=== PATIENT | female | born 1945 | race Caucasian/White ===

== ENCOUNTER 2023-01-13 15:47 | Emergency (ER) | payer OTHER ==
--- OUTSIDE RECORDS SUMMARY | 2023-01-13 15:51 | XMS REPORT | Continuity of Care Document ---
:1945 Author Organization [facility] t Address [address] [place] [address] Care Team Providers Name Role Phone Fredis Rodriguez MD Primary Care Physician Mckayla Holman MD Attending Clinician MIREYA BLACKMAN Attending Clinician Unavailable Nathalia Miguel MA Attending Clinician Unavailable Zach Monteiro MD Attending Clinician Celina De Leon Attending Clinician DEENA PRECIADO Attending Clinician Unavailable ITZEL ROSALES Attending Clinician Unavailable ARASH STARK Attending Clinician Unavailable MD ARASH STARK Attending Clinician Unavailable ARASH STARK Admitting Clinician Unavailable MD ARASH STARK Admitting Clinician Unavailable MCKAYLA HOLMAN Admitting Clinician Unavailable Payers Payer Name Policy Type Policy Number Effective Date Expiration Date S ource PPO/POS - [employer] [id number] 2021 00:00:00 Problems Condition Condition Condition Status Onset Resolution Last Treating Co mments Source Name Details Category Date Date Treatment Clinician Date Abnormal Abnormal Disease Active 2019-09 Metho di stress stress 09-22 st test test 00:00: Hospita 00 l 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 00:00: Ho spita ty, right ty, right 00 l Localized Localized Disease Active [facility] osteoarthr osteoarthr 04-29 st itis of itis of 00:00: Hospita right knee right knee 00 l Allergies, Adverse Reactions, Alerts Allergy Allergy Status Severity Reaction(s) Onset Inactive Treating Comm ents Source Name Type Date Date Clinician Egg Propensi Active Swelling When she Meth santiago ty to 09-[address] adverse 00:00: many it Hospita reaction 00 causes l s to Lip drug swelling Penicill Propensi Active Itching Metho di ins ty to 09-22 st adverse 00:00: Hospita reaction 00 l s to drug Fluconaz Propensi Active Diarrhea Meth santiago ole ty to 04-29 st adverse 00:00: Hospita reaction 00 l s to drug Predniso Propensi Active Other (See Anger and Methodi ne ty to Comments) [address] adverse 00:00: Terrible Hospita reaction 00 insomnia. l s to drug Codeine Propensi Active Other (See 2016-09 "wild" as Methodi ty to Comments) 0-[address] adverse 00:00: girl Hospita reaction 00 l s to drug Erythrom Propensi Active Itching 2016-09 Metho di ycin ty to 0-24 st adverse 00:00: Hospita reaction 00 l s to drug Sulfa Propensi Active Rash 2016-09 Methodi (Sulfona ty to 0-24 st mide adverse 00:00: Hospita Antibiot reaction 00 l ics) s to drug Family History Family Member Diagnosis Comments Start Date Stop Date Source Natural father Emphysema [facility]ism [facility] Natural father Hypertension Methodis t [facility] Natural mother Hypertension Method t [facility] Social History Social Habit Start Date Stop Date Quantity Comments Source History of tobacco Cigarette Smoker [facility]ism use [facility] Gender identity [facility] Sexual orientation [facility] History of Social [address] function 00:00:00 00:00:00 Hospital Alcohol intake 2022-03-07 2022-03-07 Ex-drinker [facility] 00:00:00 00:00:00 (finding) Hospital Tobacco use and 2019-09-22 2019-09-22 Smokeless [facility] exposure 00:00:00 00:00:00 tobacco non-user Hospital Cigarettes smoked 2019-09-22 2019-09-[address] current (pack per 00:00:00 00:00:00 Hospita l day) - Reported Cigarette 2019-09-22 2019-09-22 [facility] pack-years 00:00:00 00:00:00 Hospital Sex Ass[birth year] At [birth year] [facility] 00:00:00 00:00:00 Hospital Smoking Status Start Date Stop Date Source Ex-smoker 2019-09-22 00:00:00 2019-09[facility] Ordered Filled Start Stop Current Ordering Indication Dosage Frequency Signature Comments Components Source Medication Medication Date Date Medication? Clinician (SIG) Name Name krill oil Yes 1{capsu QD Take 1 Met hodi 500 mg 6-21 le} capsule by st capsule 14:05: mouth Hospita 18 daily. l cholecalcif 2021-0 Yes 2{tbl} QD Take 2 Me thodi nilam, 6-[address] vitamin D3, 14:05: mouth Hospi ta 250 mcg 18 daily. 2 l (10,000 tablets unit) daily tablet calcium 2021-0 Yes 1{tbl} QD Take 1 Method i citrate-vit 6-[address] ritter D3 14:05: mouth Hospita (CITRACAL+D 18 daily. l ) 315-200 mg-unit per tablet clobetasol 2021-0 Yes Apply Method i (TEMOVATE) 6-[address] 0.05 % 14:05: as needed. Hospi ta external 18 l solution ibuprofen 2021-0 Yes 200mg Q6H Take 200 Met hodi (ADVIL) 200 6-[address] MG tablet 14:05: mouth Hospita 18 every 6 l (six) hours as needed for mild pain. sour gates 2021-0 Yes Take by Met hodi extract 6-[address] (TART 14:05: Hospita GATES 18 l EXTRACT ORAL) hydrocortis 2021-0 Yes Apply Metho di one 0.5 % 6-[address] cream 14:05: as needed. Hospit a 18 l isosorbide 2021-0 Yes 20mg Q.5D Take 20 mg M ethodi mononitrate 6-[address] (ISMO,MONOK 14:05: (two) Hospi ta ET) 20 MG 18 times a l tablet day. clopidogrel 2022-0 Yes 75mg QD Take 75 mg Methodi (PLAVIX) 75 6-[address] mg tablet 14:05: daily. Hospit a 18 l simvastatin 2022-0 Yes 20mg Take 20 mg Methodi (ZOCOR) 20 6-[address] MG tablet 14:05: Hospita 18 l levothyroxi 2022-0 Yes 112ug QD Take 112 M ethodi ne 6-[address] (SYNTHROID, 14:05: mouth Hospi ta LEVOXYL) 18 every l 112 mcg morning. tablet multivitami 2022-0 Yes 1{tbl} QD Take 1 Me thodi n 6-[address] (THERAGRAN) 14:05: mouth Hospi ta tablet 18 daily. l krill oil 2021-0 Yes 1{capsu QD Take 1 Met hodi 500 mg 6-21 le} capsule by st capsule 14:05: mouth Hospita 18 daily. l cholecalcif 2022-0 Yes 2{tbl} QD Take 2 Me thodi nilam, 6-[address] vitamin D3, 14:05: mouth Hospi ta 250 mcg 18 daily. 2 l (10,000 tablets unit) daily tablet calcium 2021-0 Yes 1{tbl} QD Take 1 Method i citrate-vit 6-21 tablet by ritter D3 14:05: mouth Hospita (CITRACAL+D 18 daily. l ) 315-200 mg-unit per tablet clobetasol 2021-0 Yes Apply Method i (TEMOVATE) 6-[address] 0.05 % 14:05: as needed. Hospi ta external 18 l solution ibuprofen 2021-0 Yes 200mg Q6H Take 200 Met hodi (ADVIL) 200 6-[address] MG tablet 14:05: mouth Hospita 18 every 6 l (six) hours as needed for mild pain. sour gates 2021-0 Yes Take by Met hodi extract 6-[address] (TART 14:05: Hospita GATES 18 l EXTRACT ORAL) hydrocortis 2021-0 Yes Apply Metho di one 0.5 % 6-[address] cream 14:05: as needed. Hospit a 18 l isosorbide 2021-0 Yes 20mg Q.5D Take 20 mg M ethodi mononitrate 6-[address] (ISMO,MONOK 14:05: (two) Hospi ta ET) 20 MG 18 times a l tablet day. clopidogrel 2-0 Yes 75mg QD Take 75 mg Methodi (PLAVIX) 75 6-[address] mg tablet 14:05: daily. Hospit a 18 l simvastatin 2022-0 Yes 20mg Take 20 mg Method[facility] (ZOCOR) 20 6-[address] MG tablet 14:05: Hospita 18 l levothyroxi 2022-0 Yes 112ug QD Take 112 M ethodi ne 6-[address] (SYNTHROID, 14:05: mouth Hospi ta LEVOXYL) 18 every l 112 mcg morning. tablet multivitami 2021-0 Yes 1{tbl} QD Take 1 Me thodi n 6-[address] (THERAGRAN) 14:05: mouth Hospi ta tablet 18 daily. l krill oil 2021-0 Yes 1{capsu QD Take 1 Met hodi 500 mg 6-21 le} capsule by st capsule 14:05: mouth Hospita 18 daily. l cholecalcif 202-0 Yes 2{tbl} QD Take 2 Me thodi nilam, 6-[address] vitamin D3, 14:05: mouth Hospi ta 250 mcg 18 daily. 2 l (10,000 tablets unit) daily tablet calcium 2021-0 Yes 1{tbl} QD Take 1 Method i citrate-vit 6-[address] ritter D3 14:05: mouth Hospita (CITRACAL+D 18 daily. l ) 315-200 mg-unit per tablet clobetasol 2021-0 Yes Apply Method i (TEMOVATE) 6-[address] 0.05 % 14:05: as needed. Hospi ta external 18 l solution ibuprofen 2021-0 Yes 200mg Q6H Take 200 Met hodi (ADVIL) 200 6-[address] MG tablet 14:05: mouth Hospita 18 every 6 l (six) hours as needed for mild pain. sour gates 2021-0 Yes Take by Met hodi extract 6-[address] (TART 14:05: Hospita GATES 18 l EXTRACT ORAL) hydrocortis 2021-0 Yes Apply Metho di one 0.5 % 6-[address] cream 14:05: as needed. Hospit a 18 l isosorbide 2022-0 Yes 20mg Q.5D Take 20 mg M ethodi mononitrate 6-[address] (ISMO,MONOK 14:05: (two) Hospi ta ET) 20 MG 18 times a l tablet day. clopidogrel 2022-0 Yes 75mg QD Take 75 mg Methodi (PLAVIX) 75 6-[address] mg tablet 14:05: daily. Hospit a 18 l simvastatin 2022-0 Yes 20mg Take 20 mg Method[facility] (ZOCOR) 20 6-[address] MG tablet 14:05: Hospita 18 l levothyroxi 2022-0 Yes 112ug QD Take 112 M ethodi ne 6-[address] (SYNTHROID, 14:05: mouth Hospi ta LEVOXYL) 18 every l 112 mcg morning. tablet multivitami 2022-0 Yes 1{tbl} QD Take 1 Me thodi n 6-[address] (THERAGRAN) 14:05: mouth Hospi ta tablet 18 daily. l krill oil 2022-0 Yes 1{capsu QD Take 1 Met hodi 500 mg 6-21 le} capsule by st capsule 14:05: mouth Hospita 18 daily. l isosorbide 2022-0 Yes 20mg Q.5D Take 20 mg M ethodi mononitrate 6-[address] (ISMO,MONOK 14:05: (two) Hospi ta ET) 20 MG 18 times a l tablet day. clopidogrel 2022-0 Yes 75mg QD Take 75 mg Methodi (PLAVIX) 75 6-[address] mg tablet 14:05: daily. Hospit a 18 l simvastatin 2022-0 Yes 20mg Take 20 mg Method[facility] (ZOCOR) 20 6-[address] MG tablet 14:05: Hospita 18 l levothyroxi 2022-0 Yes 112ug QD Take 112 M ethodi ne 6-[address] (SYNTHROID, 14:05: mouth Hospi ta LEVOXYL) 18 every l 112 mcg morning. tablet multivitami 2022-0 Yes 1{tbl} QD Take 1 Me thodi n 6-[address] (THERAGRAN) 14:05: mouth Hospi ta tablet 18 daily. l krill oil 2022-0 Yes 1{capsu QD Take 1 Met hodi 500 mg 6-21 le} capsule by st capsule 14:05: mouth Hospita 18 daily. l cholecalcif 2022-0 Yes 2{tbl} QD Take 2 Me thodi nilam, 6-[address] vitamin D3, 14:05: mouth Hospi ta 250 mcg 18 daily. 2 l (10,000 tablets unit) daily tablet calcium 2022-0 Yes 1{tbl} QD Take 1 Method i citrate-vit 6-[address] ritter D3 14:05: mouth Hospita (CITRACAL+D 18 daily. l ) 315-200 mg-unit per tablet clobetasol 2022-0 Yes Apply Method i (TEMOVATE) 6-[address] 0.05 % 14:05: as needed. Hospi ta external 18 l solution ibuprofen 2-0 Yes 200mg Q6H Take 200 Met hodi (ADVIL) 200 6-[address] MG tablet 14:05: mouth Hospita 18 every 6 l (six) hours as needed for mild pain. sour gatse 2021-0 Yes Take by Met hodi extract 6-[address] (TART 14:05: Hospita GATES 18 l EXTRACT ORAL) hydrocortis 2021-0 Yes Apply Metho di one 0.5 % 6-[address] cream 14:05: as needed. Hospit a 18 l cholecalcif 2022-0 Yes 2{tbl} QD Take 2 Me thodi nilam, 6-[address] vitamin D3, 14:05: mouth Hospi ta 250 mcg 18 daily. 2 l (10,000 tablets unit) daily tablet calcium 2-0 Yes 1{tbl} QD Take 1 Method i citrate-vit 6-[address] ritter D3 14:05: mouth Hospita (CITRACAL+D 18 daily. l ) 315-200 mg-unit per tablet clobetasol 2022-0 Yes Apply Method i (TEMOVATE) 6-[address] 0.05 % 14:05: as needed. Hospi ta external 18 l solution ibuprofen 2022-0 Yes 200mg Q6H Take 200 Met hodi (ADVIL) 200 6-[address] MG tablet 14:05: mouth Hospita 18 every 6 l (six) hours as needed for mild pain. sour gates 0 Yes Take by Met hodi extract 6-[address] (TART 14:05: Hospita GATES 18 l EXTRACT ORAL) hydrocortis 2021-0 Yes Apply Metho di one 0.5 % 03-[address] cream 14:05: as needed. Hospit a 18 l isosorbide 2021-0 Yes 20mg Q.5D Take 20 mg M ethodi mononitrate -[address] (ISMO,MONOK 14:05: (two) Hospi ta ET) 20 MG 18 times a l tablet day. clopidogrel 0 Yes 75mg QD Take 75 mg [facility] (PLAVIX) 75 - by mouth st mg tablet 14:05: daily. Hospit a 18 l simvastatin 2021-0 Yes 20mg Take 20 mg [facility] (ZOCOR) 20 - by mouth. st MG tablet 14:05: Hospita 18 l levothyroxi 2021-0 Yes 112ug QD Take 112 M ethodi ne 6-[address] (SYNTHROID, 14:05: mouth Hospi ta LEVOXYL) 18 every l 112 mcg morning. tablet multivitami 0 Yes 1{tbl} QD Take 1 Me thodi n 6-[address] (THERAGRAN) 14:05: mouth Hospi ta tablet 18 daily. l allopurinoL 2020-0 Yes [id number] TAKE 1 [facility] (ZYLOPRIM) 12-[address] 300 MG 00:00: MOUTH Hospita tablet 00 EVERY DAY l allopurinoL 2020-0 Yes [id number] TAKE 1 [facility] (ZYLOPRIM) 12-[id number] 300 MG 00:00: MOUTH Hospita tablet 00 EVERY DAY l allopurinoL 2020-0 Yes [id number] TAKE 1 [facility] (ZYLOPRIM) 12-[id number] 300 MG 00:00: MOUTH Hospita tablet 00 EVERY DAY l allopurinoL 2020-0 Yes [id number] TAKE 1 [facility] (ZYLOPRIM) 12-[id number] 300 MG 00:00: MOUTH Hospita tablet 00 EVERY DAY l allopurinoL 2020-0 Yes [id number] TAKE 1 [facility] (ZYLOPRIM) 12-[id number] 300 MG 00:00: MOUTH Hospita tablet 00 EVERY DAY l metoprolol 2018-0 Yes 25mg Q.5D Take 25 mg M ethodi tartrate 7-[address] (LOPRESSOR) 00:00: (two) Hospi ta 25 mg 00 times a l tablet day. metoprolol 2018-0 Yes 25mg Q.5D Take 25 mg M ethodi tartrate 7-[address] (LOPRESSOR) 00:00: (two) Hospi ta 25 mg 00 times a l tablet day. metoprolol 2018-0 Yes 25mg Q.5D Take 25 mg M ethodi tartrate 7-[address] (LOPRESSOR) 00:00: (two) Hospi ta 25 mg 00 times a l tablet day. metoprolol 2018-0 Yes 25mg Q.5D Take 25 mg M ethodi tartrate 7-[address] (LOPRESSOR) 00:00: (two) Hospi ta 25 mg 00 times a l tablet day. metoprolol 2018-0 Yes 25mg Q.5D Take 25 mg M ethodi tartrate 7-[address] (LOPRESSOR) 00:00: (two) Hospi ta 25 mg 00 times a l tablet day. spironolact 2018-0 Yes 25mg QD Take 25 mg [facility]i one 5-[address] (ALDACTONE) 00:00: daily. Hosp komal 25 MG 00 l tablet spironolact 2018-0 Yes 25mg QD Take 25 mg [facility] one 5-[address] (ALDACTONE) 00:00: daily. Hosp komal 25 MG 00 l tablet spironolact 2018-0 Yes 25mg QD Take 25 mg [facility] one 5-[address] (ALDACTONE) 00:00: daily. Hosp komal 25 MG 00 l tablet spironolact 2018-0 Yes 25mg QD Take 25 mg [facility] one 5-[address] (ALDACTONE) 00:00: daily. Hosp komal 25 MG 00 l tablet spironolact 2018-0 Yes 25mg QD Take 25 mg Methodi one 5-[address] (ALDACTONE) 00:00: daily. Hosp komal 25 MG 00 l tablet Immunizations Ordered Immunization Filled Immunization Date Status Commen ts Source Name Name [place] COVID-19 MRNA 2020-11-29 Completed Meth odist VACCINATION 00:00:00 [facility] PFIZER COVID-19 MRNA 2020-11-29 Completed Meth odist VACCINATION 00:00:00 [facility] PFIZER COVID-19 MRNA 2020-11-29 Completed Meth odist VACCINATION 00:00:00 [facility] PFIZER COVID-19 MRNA 2020-11-29 Completed Meth odist VACCINATION 00:00:00 [facility] PFIZER COVID-19 MRNA 2020-11-29 Completed Meth odist VACCINATION 00:00:00 [facility] PFIZER COVID-19 MRNA 2020-11-08 Completed Meth odist VACCINATION 00:00:00 [facility] PFIZER COVID-19 MRNA 2020-11-08 Completed Meth odist VACCINATION 00:00:00 [facility] PFIZER COVID-19 MRNA 2020-11-08 Completed Meth odist VACCINATION 00:00:00 [facility] PFIZER COVID-19 MRNA 2020-11-08 Completed Meth odist VACCINATION 00:00:00 [facility] PFIZER COVID-19 MRNA 2020-11-08 Completed Meth odist VACCINATION 00:00:00 Hospital Vital Signs Vital Name Observation Time Observation Value Comments Source Body height 2022-03-15 20:03:00 160 cm [facility] Body weight 2022-03-15 20:03:00 99.338 kg [facility] BMI 2022-03-15 20:03:00 38.79 kg/m2 [facility] Systolic blood 2022-03-01 19:38:00 145 mm[Hg] [facility] pressure Diastolic blood 2022-03-01 19:38:00 71 mm[Hg] [facility] pressure Heart rate 2022-03-01 19:38:00 67 /min [facility] Procedures Procedure Date / Time Performed Performing Clinician Sourc e MRI IAC W WO CONTRAST 2022-03-15 20:17:40 Mireya Blackman [facility] Plan of Care Planned Activity Planned Date Details Comments Source Future Scheduled 2023-01-10 COLONOSCOPY SCREENING [facility] Test 09:48:23 [code = COLONOSCOPY SCREENING] Future Scheduled 2023-01-10 SHINGLES VACCINES (1 Met [facility] Test 09:48:23 of 2) [code = SHINGLES VACCINES (1 of 2)] Future Scheduled 2023-01-10 65+ PNEUMOCOCCAL [facility] Test 09:48:23 VACCINE (1 - PCV) [code = 65+ PNEUMOCOCCAL VACCINE (1 - PCV)] Future Scheduled 2023-01-10 COVID-19 VACCINE (3 - [facility] Test 09:48:23 Booster for Pfizer series) [code = COVID-19 VACCINE (3 - Booster for Pfizer series)] Future Scheduled 2023-01-10 INFLUENZA VACCINE [facility] Test 09:48:23 [code = INFLUENZA VACCINE] Future Scheduled 2022-10-01 BREAST CANCER [facility] Test 12:43:11 SCREENING [code = BREAST CANCER SCREENING] Future Scheduled 2022-10-01 COLONOSCOPY SCREENING [facility] Test 12:43:11 [code = COLONOSCOPY SCREENING] Future Scheduled 2022-10-01 SHINGLES VACCINES (1 Met [facility] Test 12:43:11 of 2) [code = SHINGLES VACCINES (1 of 2)] Future Scheduled 2022-10-01 65+ [facility]AL [facility] 12:43:11 VACCINE (1 - PCV) [code = 65+ PNEUMOCOCCAL VACCINE (1 - PCV)] Future Scheduled 2022-10-01 COVID-19 VACCINE (3 - [facility] Test 12:43:11 Booster for Pfizer series) [code = COVID-19 VACCINE (3 - Booster for Pfizer series)] Future Scheduled 2022-10-01 INFLUENZA VACCINE [facility] Test 12:43:11 [code = INFLUENZA VACCINE] Future Scheduled 2022-10-01 BREAST CANCER [facility] Test 12:43:11 SCREENING [code = BREAST CANCER SCREENING] Future Scheduled 2022-10-01 COLONOSCOPY SCREENING [facility] Test 12:43:11 [code = COLONOSCOPY SCREENING] Future Scheduled 2022-10-01 SHINGLES VACCINES (1 Met [facility] Test 12:43:11 of 2) [code = SHINGLES VACCINES (1 of 2)] Future Scheduled 2022-10-01 65+ [facility]CCAL [facility] 12:43:11 VACCINE (1 - PCV) [code = 65+ PNEUMOCOCCAL VACCINE (1 - PCV)] Future Scheduled 2022-10-01 COVID-19 VACCINE (3 - [facility] Test 12:43:11 Booster for Pfizer series) [code = COVID-19 VACCINE (3 - Booster for Pfizer series)] Future Scheduled 2022-10-01 INFLUENZA VACCINE [facility] Test 12:43:11 [code = INFLUENZA VACCINE] Future Scheduled 2022-09-21 BREAST CANCER [facility] Test 13:11:43 SCREENING [code = BREAST CANCER SCREENING] Future Scheduled 2022-09-21 COLONOSCOPY SCREENING [facility] Test 13:11:43 [code = COLONOSCOPY SCREENING] Future Scheduled 2022-09-21 SHINGLES VACCINES (1 Met [facility] Test 13:11:43 of 2) [code = SHINGLES VACCINES (1 of 2)] Future Scheduled 2022-09-21 65+ PNEUMOCOCCAL [facility] Test 13:11:43 VACCINE (1 - PCV) [code = 65+ PNEUMOCOCCAL VACCINE (1 - PCV)] Future Scheduled 2022-09-21 COVID-19 VACCINE (3 - [facility] Test 13:11:43 Booster for Pfizer series) [code = COVID-19 VACCINE (3 - Booster for Pfizer series)] Future Scheduled 2022-09-21 INFLUENZA VACCINE [facility] Test 13:11:43 [code = INFLUENZA VACCINE] Future Scheduled 2022-09-12 BREAST CANCER [facility] Test 12:30:45 SCREENING [code = BREAST CANCER SCREENING] Future Scheduled 2022-09-12 COLONOSCOPY SCREENING [facility] Test 12:30:45 [code = COLONOSCOPY SCREENING] Future Scheduled 2022-09-12 SHINGLES VACCINES (1 Met [facility] Test 12:30:45 of 2) [code = SHINGLES VACCINES (1 of 2)] Future Scheduled 2022-09-12 65+ [facility]CCAL [facility] Test 12:30:45 VACCINE (1 - PCV) [code = 65+ PNEUMOCOCCAL VACCINE (1 - PCV)] Future Scheduled 2022-09-12 COVID-19 VACCINE (3 - [facility] Test 12:30:45 Booster for Pfizer series) [code = COVID-19 VACCINE (3 - Booster for Pfizer series)] Future Scheduled 2022-09-12 INFLUENZA VACCINE [facility] Hospital Test 12:30:45 [code = INFLUENZA VACCINE] Encounters Start End Encounter Admission Attending Care Care Encounter Source Date/Time Date/Time Type Type Clinicians Facility Department ID 2022-08-02 2022-08-02 Telephone Manda, 1.2.840.1 [id number] Methodi 00:00:00 00:00:00 Mckayla Hayward [id number] 175 s t 3.430.2.7 Hospit a .3.645085 l .8 2022-08-02 2022-08-02 Telephone Manda, 1.2.840.1 [id number] [facility] 00:00:00 00:00:00 Mckayla Hayward [id number] 175 s t 3.430.2.7 Hospit a .3.798261 l .8 2022-07-28 2022-07-28 Telephone Manda, 1.2.840.1 [id number] [facility] 00:00:00 00:00:00 Mckayla Hayward 12268.1.1 349 s t 3.430.2.7 Hospit a .3.643126 l .8 2022-07-28 2022-07-28 Telephone Manda, 1.2.840.1 [id number] Methodi 00:00:00 00:00:00 Mckayla Hayward [id number] 349 s t 3.430.2.7 Hospit a .3.111891 l .8 2022-07-24 2022-07-24 Telephone Manda, 1.2.840.1 [id number] [facility] 00:00:00 00:00:00 Mckayla Hayward 75346.1.1 753 s t 3.430.2.7 Hospit a .3.665835 l .8 2022-07-24 2022-07-24 Telephone Manda, 1.2.840.1 [id number] Method[facility] 00:00:00 00:00:00 Mckayla Hayward 41380.1.1 753 s t 3.430.2.7 Hospit a .3.184262 l .8 2022-03-15 2022-03-15 Outpatient MIREYA BLACKMAN [facility] [id number] [place] 00:00:00 00:00:[address] 2022-03-07 2022-03-07 Office Mireya Blackman 1.2.840.1 [id number] Methodi 14:15:00 15:56:38 Visit Antonio [address]93.1.[address] 3.430.2.7 Hospit a .3.623444 l .8 2022-03-07 2022-03-07 Office Mireya Blackman 1.2.840.1 [id number] [facility]i 14:15:00 15:56:38 Visit Antonio [address]19.1.[address] 3.430.2.7 Hospit a .3.806983 l .8 2022-03-07 2022-03-07 Travel 1.2.840.1 1.2.410.576 [id number] [facility] 00:00:00 00:00:[address] 3.430.2.7 0.2.7.3.698 Ho spita .3.022744 084.8 l .8 2022-03-07 2022-03-07 Travel 1.2.840.1 [id number] [id number] Methodi 00:00:00 00:00:[address] 3.430.2.7 0.2.7.3.698 Ho spita .3.752244 084.8 l .8 2022-03-03 2022-03-03 Office Mireya Blackman 1.2.840.1 [id number] [facility] 13:45:00 15:35:41 Visit Antonio [address]651.1.[address] 3.430.2.7 Hospit a .3.925887 l .8 2022-03-03 2022-03-03 Office Mireya Blackman 1.2.840.1 [id number] [facility] 13:45:00 15:35:41 Visit Antonio [address]69.1.[address] 3.430.2.7 Hospit a .3.970508 l .8 2022-03-03 2022-03-03 Travel 1.2.840.1 1.2.063.308 [id number] [facility] 00:00:00 00:00:[address] 3.430.2.7 0.2.7.3.698 Ho spita .3.662649 084.8 l .8 2022-03-03 2022-03-03 Travel 1.2.840.1 1.2.068.270 [id number] [facility] 00:00:00 00:00:[address] 3.430.2.7 0.2.7.3.698 Ho spita .3.238026 084.8 l .8 2022-03-02 2022-03-02 Telephone Miguel, 1.2.840.1 [id number] [facility] 00:00:00 00:00:[id number] 3.430.2.7 Hospit a .3.484759 l .8 2022-03-02 2022-03-02 Telephone Miguel, 1.2.840.1 [id number] Methodi 00:00:00 00:00:[address] 3.430.2.7 Hospit a .3.816438 l .8 2022-03-01 2022-03-01 Office Zach Monteiro 1.2.840.1 [id number] [facility] 14:30:00 16:57:56 Visit Mireya Blackman 56726.1.[address] 3.430.2.7 Hospit a .3.542112 l .8 2022-03-01 2022-03-01 Office Zach Monteiro 1.2.840.1 [id number] [id number] Methodi 14:30:00 16:57:56 Visit Mireya Blackman 56009.1.[address] 3.430.2.7 Hospit a .3.992366 l .8 2022-03-01 2022-03-01 Office Alhaji 1.2.840.1 [id number] Methodi 14:00:00 15:32:00 Visit Celina 46960.1.[address] [facility] 3.430.2.7 Hospit a .3.764090 l .8 2022-03-01 2022-03-01 Office Alhaji, 1.2.840.1 [id number] Methodi 14:00:00 15:32:00 Visit Celina [address]893.1.[address] [facility] 3.430.2.7 Hospit a .3.229605 l .8 2022-03-01 2022-03-01 Travel 1.2.840.1 1.2.922.679 [id number] [facility] 00:00:00 00:00:[id number] 3.430.2.7 0.2.7.3.698 Ho spita .[id number] 084.8 l .8 2022-03-01 2022-03-01 Travel 1.2.840.1 [id number] [facility] 00:00:00 00:00:[id number] 3.430.2.7 0.2.7.3.698 Ho spita .[id number] 084.8 l .8 2021-06-07 2021-06-07 Outpatient DEENA PRECIADO [facility] [id number] [facility] 11:20:02 12:22:06 Elizabeth 2020-11-29 2020-11-29 Outpatient BOBBY, [facility] [id number] [address] [place] 00:00:00 00:00:00 ITZEL [address] 2020-11-08 2020-11-08 Outpatient [facility] [id number] [address] [place] 00:00:00 00:00:[address] 2020-07-23 2020-07-24 Outpatient [facility] [id number] [address] [place] 00:00:00 00:00:00 ARASH [address] 2020-07-20 2020-07-20 [facility] [id number] [address] [place] 00:00:00 00:00:00 ARASH [address] 2019-10-13 2019-10-14 Outpatient MANDA, [facility] [id number] [place] 00:00:00 00:00:00 MCKAYLA [address] [facility] Results Test Description Test Time Test Comments Results Result Comments Source SARS-CoV-2 (COVID-19) RNA [Presence] in Respiratory sp ecimen by 2020-07-20 16:52:25 MONIKA with probe detection Test Item Value Reference Range Interpretation Comme nts SARS-CoV-2 (COVID-19) RNA [Presence] in Respiratory Not detected No t-Detected specimen by MONIKA with probe detection (test code = 52192-0) ISIDRO IBARRA
[2023-01-13] MEDS ORDERED: FLUORESCEIN SODIUM 1 MG/WRAP ONE (16:03)
[2023-01-13] MEDS ORDERED: TETRACAINE HCL 0.5% 4ML OPTH ONE (16:04)
--- NOTE | 2023-01-13 16:42 | ER ---
Nurse's Notes [facility] Name: Kimber Donnelly Age: 77 yrs Sex: Female : 1945 Arrival Date: 01/13/2023 Time: 15:47 Bed 18 Private MD: Fredis Rodriguez V Diagnosis: Unspecified acute conjunctivitis, left eye;Foreign body on external eye, part unspecified, left eye, initial encounter Presentation: 01/13 15:51 Chief complaint: Wind blew unknown FB into left eye just [employer] REPA[employer]ER. Coronavirus screen: At hb this time, the client does not indicate any symptoms associated with coronavirus-19. Ebola Screen: No symptoms or risks identified at this time. Initial Sepsis Screen: Does the patient meet any 2 criteria? No. Patient's initial sepsis screen is negative. Does the patient have a suspected source of infection? No. Patient's initial sepsis screen is negative. Risk Assessment: Do you want to hurt yourself or someone else? Patient reports no desire to harm self or others. Onset of symptoms was January 13, 2023. 15:51 Method Of Arrival: Ambulatory hb 15:51 Acuity: VICTORINO 3 hb Historical: - Allergies: 15:52 Codeine; hb 15:52 PENICILLINS; hb 15:52 Sulfa (Sulfonamide Antibiotics); hb 15:52 Erythromycin; hb 15:52 Diflucan; hb Screenin:03 [facility] ED Fall Risk Assessment (Adult) History of falling in the last 3 months, kc6 including since admission No falls in past 3 months (0 pts) Confusion or Disorientation No (0 pts) Intoxicated or Sedated No (0 pts) Impaired Gait No (0 pts) Mobility Assist Device Used No (0 pt) Altered Elimination No (0 pt) Score/Fall Risk Level 0 - 2 = Low Risk Oriented to surroundings, Maintained a safe environment, Educated pt \T\ family on fall prevention, incl call for assistance when getting out of bed, Assessed \T\ reinforced patient's understanding of fall precautions, Hourly rounding (assess needs \T\ fall precautionary measures) done. Abuse screen: Denies threats or abuse. Denies injuries from another. Nutritional screening: No deficits noted. Tuberculosis screening: No symptoms or risk factors identified. Assessment: 16:02 General: Appears in no apparent distress. comfortable, Behavior is calm, cooperative, kc6 appropriate for age. Pain: Complains of pain in left eye. Neuro: Cali Agitation-Sedation Scale (RASS): 0 - Alert and Calm Level of Consciousness is awake, alert, obeys commands, Oriented to person, place, time, situation, Appropriate for age. Cardiovascular: Capillary refill < 3 seconds. Respiratory: Airway is patent Trachea midline Respiratory effort is even, unlabored, Respiratory pattern is regular, symmetrical. GI: No signs and/or symptoms were reported involving the gastrointestinal system. : No signs and/or symptoms were reported regarding the genitourinary system. EENT: Sclera/Cornea are reddened in outer aspect of conjuctiva of left eye and inner aspect of conjunctiva of left eye. Derm: No signs and/or symptoms reported regarding the dermatologic system. Skin is intact, Skin is pink, warm \T\ dry. Musculoskeletal: No signs and/or symptoms reported regarding the musculoskeletal system. Circulation, motion, and sensation intact. Capillary refill < 3 seconds, Range of motion: intact in all extremities. Vital Signs: 15:51 BP 145 / 78; Pulse 70; Resp 18; Temp 97.4(TE); Pulse Ox 98% ; Weight 99.79 kg; Height 5 hb ft. 3 in. ; Pain 1/10; 16:03 BP 145 / 72; Pulse 66; Resp 18 S; Pulse Ox 99% on R/A; kc6 15:51 Body Mass Index 38.97 (99.79 kg, 160.02 cm) hb 15:51 Pain Scale: Adult hb Visual Acuity: 16:13 Left Eye Visual acuity 20/40, Reactive To Accomodation; Right Eye Visual acuity 20/25, kc6 Reactive To Accomodation; Both Eyes Visual acuity 20/25; Without Lenses; ED Course: 15:48 Patient arrived in ED. am2 15:48 Fredis Rodriguez MD is Private Physician. am2 15:51 Yg Sousa PA is PHCP. cp 15:51 Duke Samuel DO is Attending Physician. cp 15:52 Triage completed. hb 15:53 Arm band placed on. hb 15:55 Heidi Powell RN is Primary Nurse. kc6 16:03 Patient has correct armband on for positive identification. Bed in low position. Call kc6 light in reach. Side rails up X 1. Adult w/ patient. 16:40 Aida Elliott MD is Referral Physician. cp 16:59 No provider procedures requiring assistance completed. Patient did not have IV access kc6 during this emergency room visit. Administered Medications: 16:01 Drug: Tetracaine Ophthalmic Drops 0.5 % 1 drops Route: Ophthalmic; Site: left eye; kc6 Medication: 16:59 VIS not applicable for this client. kc6 Outcome: 16:42 Discharge ordered by MD. cp 16:59 Discharged to home ambulatory, with family. kc6 16:59 Condition: stable 16:59 Discharge instructions given to patient, Instructed on discharge instructions, follow up and referral plans. medication usage, Demonstrated understanding of instructions, follow-up care, medications, Prescriptions given X 1. 17:00 Patient left the ED. kc6 Signatures: Yg Sousa PA PA cp Cheyenne Steiner, RN RN Verona Real am2 Heidi Powell RN RN kc6 Corrections: (The following items were deleted from the chart) 15:53 15:52 Allergies: Diflucan IV; hb hb
--- NOTE | 2023-01-13 16:42 | EDPHYS ---
Physician Documentation [facility] Name: Kimber Donnelly Age: 77 yrs Sex: Female : 1945 Arrival Date: 01/13/2023 Time: 15:47 Bed 18 Private MD: Fredis Rodriguez V ED Physician Duke Samuel HPI: 01/13 16:34 This 77 yrs old Female presents to ER via Ambulatory with complaints of Foreign Body In cp Eye. 16:34 The patient is experiencing foreign body sensation, to the left eye, caused by an cp unknown mechanism. Onset: The symptoms/episode began/occurred today. Duration: the symptoms are continuous. Associated signs and symptoms: Pertinent negatives: chills, ear ache, fever, headache, runny nose. Patient does not utilize any form of vision correction. Severity of symptoms: in the emergency department the symptoms are unchanged despite home interventions. Historical: - Allergies: 15:52 Codeine; hb 15:52 PENICILLINS; hb 15:52 Sulfa (Sulfonamide Antibiotics); hb 15:52 Erythromycin; hb 15:52 Diflucan; hb ROS: 16:35 Constitutional: Negative for body aches, chills, fever, poor PO intake. cp 16:35 Eyes: Positive for foreign body sensation, redness, of the left eye. 16:35 ENT: Negative for drainage from ear(s), ear pain, sore throat, difficulty swallowing, difficulty handling secretions. 16:35 Respiratory: Negative for cough, shortness of breath, wheezing. 16:35 Skin: Negative for cellulitis, rash. 16:35 Neuro: Negative for altered mental status, headache, weakness. 16:35 All other systems are negative. Exam: 16:36 Head/Face: Normocephalic, atraumatic. cp 16:36 Constitutional: The patient appears in no acute distress, alert, awake, non-toxic, well developed, well nourished, uncomfortable. 16:36 Eyes: Periorbital structures: appear normal, Pupils: equal, round, and reactive to light and accomodation, Extraocular movements: intact throughout, Conjunctiva: injected, in the left eye, Corneas: abrasion, is not appreciated, foreign body, is not appreciated, a fluorescein strip employed to appreciate the findings, Sclera: no appreciated abnormality, Lids and lashes: appear normal, on the left, small dark colored material retrieved from left conjunctiva. 16:36 ENT: External ear(s): are unremarkable, Nose: is normal, Mouth: Lips: moist, Oral mucosa: pink and intact, moist, Posterior pharynx: Airway: no evidence of obstruction, patent. 16:39 Visual Acuity: I have reviewed the nursing documentation. Vital Signs: 15:51 BP 145 / 78; Pulse 70; Resp 18; Temp 97.4(TE); Pulse Ox 98% ; Weight 99.79 kg; Height 5 hb ft. 3 in. ; Pain /10; 16:03 BP 145 / 72; Pulse 66; Resp 18 S; Pulse Ox 99% on R/A; kc6 15:51 Body Mass Index 38.97 (99.79 kg, 160.02 cm) hb 15:51 Pain Scale: Adult hb Visual Acuity: 16:13 Left Eye Visual acuity 20/40, Reactive To Accomodation; Right Eye Visual acuity 20/25, kc6 Reactive To Accomodation; Both Eyes Visual acuity 20/25; Without Lenses; MDM: 15:55 Patient medically screened. 16:00 Differential diagnosis: Corneal abrasion of left eye. Foreign body in left eye. Acute cp iritis of left eye. Acute glaucoma in left eye. Infectious conjunctivitis in left eye. 16:41 Data reviewed: vital signs, nurses notes, and as a result, I will discharge patient. 16:41 I considered the following discharge prescriptions or medication management in the emergency department Medications were administered in the Emergency Department. See MAR. Counseling: I had a detailed discussion with the patient and/or guardian regarding: the historical points, exam findings, and any diagnostic results supporting the discharge/admit diagnosis, the need for outpatient follow up, an opthalmologist, to return to the emergency department if symptoms worsen or persist or if there are any questions or concerns that arise at home. Response to treatment: the patient's symptoms have markedly improved after treatment, and as a result, I will discharge patient. 01/13 15:56 Order name: Eye Tray; Complete Time: 16:00 01/13 15:56 Order name: Fluoresene Opth strip; Complete Time: 16: 01/13 15:56 Order name: Visual Acuity; Complete Time: 16: cp Administered Medications: 16:01 Drug: Tetracaine Ophthalmic Drops 0.5 % 1 drops Route: Ophthalmic; Site: left eye; kc6 Disposition: 16:50 Chart complete. cp 20:16 Co-signature as Attending Physician, Duke Samuel DO I was immediately available on-site ms3 in the Emergency Department for consultation in the care of the patient. Disposition Summary: 01/13/23 16:42 Discharge Ordered Location: Home cp Problem: new cp Symptoms: have improved cp Condition: Stable cp Diagnosis - Unspecified acute conjunctivitis, left eye cp - Foreign body on external eye, part unspecified, left eye, initial encounter cp Followup: cp - With: Aida Elliott MD - When: 2 - 3 days - Reason: Recheck today's complaints Discharge Instructions: - Discharge Summary Sheet cp - How to Use Eye Drops and Eye Ointments cp - Eye Foreign Body cp Forms: - Medication Reconciliation Form cp - Thank You Letter cp - Antibiotic Education cp - Prescription Opioid Use cp Prescriptions: - Gentamicin 0.3 % Ophthalmic Drops - instill 1 drop by OPHTHALMIC route every 4 hours for 5 days; 1 unit; Refills: cp 0, Product Selection Permitted Signatures: Yg Sousa PA PA cp Cheyenne Steiner RN RN Duke Espino DO DO ms3 Heidi Powell RN RN kc6 Corrections: (The following items were deleted from the chart) 15:53 15:52 Allergies: Diflucan IV; hb hb
[2023-01-13 17:04] VITALS: TEMP 97.4
[2023-01-13 17:05] VITALS: BP 145/72; O2SAT 99
== END 2023-01-13 17:00 | disposition home or self-care (01) ==
LOC: ER 15:47
DX: H10.32 Unspecified acute conjunctivitis, left eye (principal); T15.92XA Foreign body on external eye, part unspecified, left eye, initial encounter; Z88.0 Allergy status to penicillin; Z88.1 Allergy status to other antibiotic agents; Z88.2 Allergy status to sulfonamides; Z88.3 Allergy status to other anti-infective agents; Z88.5 Allergy status to narcotic agent
CPT/HCPCS: 99283